=== PATIENT | female | born 2000 | race Caucasian/White ===

== ENCOUNTER 2022-07-07 19:26 | Emergency (ER) | payer MEDICAID ==
[~2022-07-07] VITALS: Ht 160 cm; Wt 76.0 kg
[2022-07-07] MEDS ORDERED: ACETAMINOPHEN 325MG TABLET PO ONE (20:45)
[2022-07-07] MEDS ORDERED: LIDOCAINE 5% PATCH TOP SCH (20:45)
[2022-07-07 20:56] VITALS: BP 106/76
[2022-07-07] MEDS ORDERED: NAPR-420 MT (21:18)
== END 2022-07-07 21:29 | disposition home or self-care (01) ==
LOC: ER 19:26
DX: S46.912A Strain of unspecified muscle, fascia and tendon at shoulder and upper arm level, left arm, initial encounter (principal); S50.02XA Contusion of left elbow, initial encounter; R68.84 Jaw pain; R51.9 Headache, unspecified; Y04.2XXA Assault by strike against or bumped into by another person, initial encounter; Y93.89 Activity, other specified; Y92.89 Other specified places as the place of occurrence of the external cause; Y99.8 Other external cause status
CPT/HCPCS: 73030; 73080; 81025; 99284